=== PATIENT | female | born 1950 | race Caucasian/White ===

== ENCOUNTER 2019-04-09 09:43 | Outpatient (CLI) | payer MEDICARE, OTHER, SELFPAY ==
[2019-04-09 09:58] LABS: Basophils Absolute Auto 0.1 K/mm3 (0.0-0.1); Basophils Percent Auto 1.4 % (0.2-1.2); Eosinophils Absolute Auto 0.1 K/mm3 (0-0.3); Eosinophils Percent Auto 1.8 % (0-4.4); Hematocrit 38.8 % (37.0-47.0); Hemoglobin 13.4 g/dL (12.0-15.0); Immature Granulocyte Absolute 0.01 K/mm3 (0.00-0.031); Immature Granulocyte Percent A 0.2 % (0-0.5); Lymphocytes Absolute Auto 2.74 K/mm3 (0.9-3.2); Lymphocytes Percent Auto 55.5 % (18.3-44.2); Mean Corpuscular HGB Conc 34.5 g/dl (32-36); Mean Corpuscular Hemoglobin 29.7 pg (26-34); Mean Platelet Volume 9.2 fl (7.4-10.4); Monocytes Absolute Auto 0.3 K/mm3 (0.1-0.6); Monocytes Percent Auto 6.5 % (2.6-8.5); Neutrophils Absolute Auto 1.7 K/mm3 (1.3-6.7); Neutrophils Percent Auto 34.6 % (45.5-73.1); Platelet Count Result 211 k/mm3 (150-375); Red Blood Count 4.51 M/mm3 (4.2-5.4); Red Cell Distribution Width 12.8 % (11.5-14.5); White Blood Count 4.9 K/mm3 (4.5-10.0)
[2019-04-09 12:25] LABS: LDL Cholesterol Direct 55 mg/dL
[2019-04-09 12:28] LABS: Cholesterol 173 mg/dL (0-200)
[2019-04-09 12:29] LABS: Triglycerides 648 mg/dL (<150)
[2019-04-09 12:36] LABS: Vitamin D 25 Hydroxy < 12.8 ng/mL
[2019-04-09 12:40] LABS: Creatinine Urine 37.9 mg/dL
[2019-04-09 12:44] LABS: MALB Creatinine Ratio 30.3 mg/g (0-30); Microalbumin Urine Random 11.5 mg/L (0-16.7)
== END 2019-04-09 09:44 | disposition home or self-care (01) ==
LOC: ANHLAB 09:46
PROVIDERS: PCP Family Medicine; Visit Provider Family Medicine
DX: E11.65 Type 2 diabetes mellitus with hyperglycemia (principal); D51.9 Vitamin B12 deficiency anemia, unspecified; E78.5 Hyperlipidemia, unspecified; E55.9 Vitamin D deficiency, unspecified; Z79.4 Long term (current) use of insulin
CPT/HCPCS: 36415; 80061; 82043; 82306; 85025

== ENCOUNTER 2019-04-19 14:52 | Outpatient (CLI) | payer MEDICARE, OTHER, SELFPAY ==
[2019-04-19 15:21] LABS: Basophils Absolute Auto 0.1 K/mm3 (0.0-0.1); Basophils Percent Auto 1.7 % (0.2-1.2); Eosinophils Absolute Auto 0.1 K/mm3 (0-0.3); Eosinophils Percent Auto 1.3 % (0-4.4); Hematocrit 40.3 % (37.0-47.0); Hemoglobin 13.5 g/dL (12.0-15.0); Immature Granulocyte Absolute 0.01 K/mm3 (0.00-0.031); Immature Granulocyte Percent A 0.2 % (0-0.5); Lymphocytes Absolute Auto 2.44 K/mm3 (0.9-3.2); Lymphocytes Percent Auto 45.9 % (18.3-44.2); Mean Corpuscular HGB Conc 33.5 g/dl (32-36); Mean Corpuscular Hemoglobin 29.9 pg (26-34); Mean Corpuscular Volume 89.4 fl (80-100); Mean Platelet Volume 9.2 fl (7.4-10.4); Monocytes Absolute Auto 0.3 K/mm3 (0.1-0.6); Monocytes Percent Auto 6.2 % (2.6-8.5); Neutrophils Absolute Auto 2.4 K/mm3 (1.3-6.7); Neutrophils Percent Auto 44.7 % (45.5-73.1); Platelet Count Result 206 k/mm3 (150-375); Red Blood Count 4.51 M/mm3 (4.2-5.4); Red Cell Distribution Width 12.9 % (11.5-14.5); White Blood Count 5.3 K/mm3 (4.5-10.0)
[2019-04-19 16:56] LABS: Alanine Aminotransferase 24 U/L (4-35); Albumin Level 4.6 g/dL (3.5-5.1); Alkaline Phosphatase 141 U/L (38-126); Aspartate Amino Transferase 33 U/L (14-36); Bilirubin,Total 0.9 mg/dL (0.2-1.3); Blood Urea Nitrogen 12 mg/dL (7-17); Calcium 9.6 mg/dL (8.4-10.2); Carbon Dioxide 28 mmol/L (22-30); Chloride 89 mmol/L (98-107); Cholesterol 194 mg/dL (0-200); Estimated Glomerular Filt Rate > 60; Glucose 338 mg/dL (65-105); HDL Direct 64 mg/dL; Potassium 3.7 mmol/L (3.4-5.0); Sodium 133 mmol/L (137-145); Triglycerides 464 mg/dL (<150)
[2019-04-19 17:06] LABS: Creatinine Urine 18.6 mg/dL
[2019-04-19 17:07] LABS: LDL Cholesterol Direct 74 mg/dL
[2019-04-19 17:10] LABS: Microalbumin Urine Random 29.2 mg/L (0-16.7)
[2019-04-19 17:29] LABS: Vitamin D 25 Hydroxy 20.3 ng/mL
[2019-04-19 17:32] LABS: Hemoglobin A1C > 14.0 % (<5.7)
== END 2019-04-19 14:53 | disposition home or self-care (01) ==
LOC: ANHLAB 14:55
PROVIDERS: PCP Family Medicine; Visit Provider Family Medicine
DX: D51.9 Vitamin B12 deficiency anemia, unspecified (principal); K76.0 Fatty (change of) liver, not elsewhere classified; E11.65 Type 2 diabetes mellitus with hyperglycemia; E55.9 Vitamin D deficiency, unspecified
CPT/HCPCS: 36415; 80048; 80061; 80076; 82043; 82306; 82607; 83036; 85025

== ENCOUNTER 2019-04-23 08:40 | Outpatient (CLI) | payer MEDICARE, OTHER, SELFPAY ==
--- NOTE | ~2019-04-23 | MM_ITS ---
EXAMINATION: MM screening [facility] BI w lissette HISTORY: Screening mammogram TECHNIQUE: Craniocaudal and mediolateral oblique 3-D tomosynthesis images were obtained and synthetic 2-D images were generated. CAD analysis was submitted and interpreted. COMPARISON: 11/10/2013 bilateral digital screening BREAST PARENCHYMAL COMPOSITION: There are scattered areas of fibroglandular density. FINDINGS: Bilateral scattered benign calcifications. There is no evidence of suspicious mass, calcifi cation, or architectural distortion to suggest malignancy in either breast. There has been no suspici ous interval change. IMPRESSION: 1. No mammographic evidence of malignancy. 2. Recommend routine screening mammography in one year. BI-RADS Category 2: Benign finding(s). Reviewed, dictated and finalized at location A. ORATION DRILLER
--- NOTE | ~2019-04-23 | DEXA_ITS ---
Bone Density Report Name: Becca Lizarraga Age: 68 Sex: Female Ethnicity: White Date of : 1950 Indication: postmenopausal; height loss; hysterectomy; Referring Provider: MEY ALLAN Study: Bone densitometry was performed. Exam Date: April 23, 2019 Accession number: [id number] Bone Density: Region BMD T-score Z-score Classification AP Spine (L3, L4) 1.091 -0.1 2.1 Normal Femoral Neck (Left) 0.937 0.8 2.6 Normal Total Hip (Left) 1.143 1.6 3.1 Normal Total Hip Bilateral Avg 1.149 1.7 3.1 Normal Femoral Neck (Right) 0.985 1.2 3.0 Normal Total Hip (Right) 1.154 1.7 3.2 Normal World Health Organization criteria for BMD impression classify patients as: Normal (T-score at or above -1.0), Osteopenia (T-score between -1.0 and -2.5), or Osteoporosis (T-score at or below -2.5). 10-year Fracture Risk: FRAX not reported because: All T-scores for Spine Total, Hip Total, Femoral Neck at or above -1.0 Clinical Information Provided by Patient: Has the following medical conditions: Hysterectomy Patient maximum height was 63 Menopause Age: 57 No regular weight bearing exercise Drinks caffeinated beverages Onset of menses at age 12 Number of children 3 Impression: The patient has normal bone mass. Discussion: LOW RISK OF FRACTURE; BONE DENSITY IS WELL ABOVE THE MINIMUM DESIRABLE LEVEL AND ABOVE AVERAGE FOR AGE AND SEX AT ALL SKELETAL SITES TESTED. This person's bone density is above expected limits for age and sex. This is rarely clinically significant, but should be pursued if there are significant musculoskeletal complaints. The patient should follow a healthful lifestyle (good nutrition with adequate calcium and vitamin D, and appropriate weight-bearing exercise). Follow-Up: Consider repeating this study in 5 years or sooner if there is some new clinical indication. Reported by: ZAKI on 04/23/2019 9:28:00 AM. Reviewed, dictated and finalized at location AArianne RAINES
== END 2019-04-23 08:41 | disposition home or self-care (01) ==
PROVIDERS: PCP Family Medicine; Visit Provider Family Medicine
DX: Z12.31 Encounter for screening mammogram for malignant neoplasm of breast (principal); R93.7 Abnormal findings on diagnostic imaging of other parts of musculoskeletal system; Z78.0 Asymptomatic menopausal state
CPT/HCPCS: 77063; 77067; 77080

== ENCOUNTER 2020-01-26 07:59 | Outpatient (NON) | payer MEDICARE, OTHER, SELFPAY ==
[2020-01-27 16:06] LABS: SARS-CoV-2 RNA PCR Negative
== END 2020-01-26 08:00 ==
LOC: ANHCOVIDDT 08:01
PROVIDERS: PCP Family Medicine; Visit Provider Nurse Practitioner Family
DX: R11.10 Vomiting, unspecified (principal); Z20.828 Contact with and (suspected) exposure to other viral communicable diseases
CPT/HCPCS: 87635; C9803; U0003

== ENCOUNTER 2020-06-16 14:45 | Outpatient (CLI) | payer MEDICARE, OTHER, SELFPAY | END 2020-06-16 14:46 | disposition home or self-care (01) | LOC: ANHCOVIDVC 14:45 | PROVIDERS: PCP Family Medicine | DX: Z23 Encounter for immunization (principal) | CPT/HCPCS: 0001A; 91300 ==

== ENCOUNTER 2020-06-19 07:54 | Outpatient (CLI) | payer MEDICARE, OTHER, SELFPAY ==
[2020-06-19 08:38] LABS: Hemoglobin A1C 10.9 % (<5.7)
[2020-06-19 08:41] LABS: LDL Cholesterol Direct 153 mg/dL
[2020-06-19 08:45] LABS: Potassium 3.6 mmol/L (3.4-5.0)
[2020-06-19 08:48] LABS: Alanine Aminotransferase 38 U/L (4-35); Albumin Level 4.1 g/dL (3.5-5.1); Alkaline Phosphatase 108 U/L (38-126); Anion Gap 8 mmol/L (8-16); Aspartate Amino Transferase 58 U/L (14-36); Bilirubin,Total 0.6 mg/dL (0.2-1.3); Blood Urea Nitrogen 8 mg/dL (7-17); Calcium 9.7 mg/dL (8.4-10.2); Carbon Dioxide 32 mmol/L (22-30); Chloride 96 mmol/L (98-107); Cholesterol 305 mg/dL (0-200); Estimated Glomerular Filt Rate > 60; Glucose 290 mg/dL (65-105); Sodium 136 mmol/L (137-145)
[2020-06-19 08:49] LABS: Triglycerides 635 mg/dL (<150)
== END 2020-06-19 07:55 | disposition home or self-care (01) ==
PROVIDERS: PCP Family Medicine; Visit Provider Internal Medicine Cardiovascular Disease
DX: E11.65 Type 2 diabetes mellitus with hyperglycemia (principal); E78.5 Hyperlipidemia, unspecified
CPT/HCPCS: 36415; 80053; 80061; 83036

== ENCOUNTER 2020-07-01 18:48 | Emergency (ER) | payer MEDICARE, OTHER, SELFPAY ==
--- NOTE | ~2020-07-01 | XR_ITS ---
EXAMINATION: XR pelvis 1-2V EXAM DATE: 07/01/2020 19:42 INDICATION: Initial encounter following injury, with pain of the pelvis. Fall. TECHNIQUE: Pelvis frontal projection(s) obtained and reviewed. There is no prior study for compariso n. FINDINGS: There is mild to moderate symmetric bilateral hip primary osteoarthritis. There are no acut e pelvic fractures or dislocations identified. There is no subcutaneous gas. The soft tissue is unr emarkable. Some pelvic surgical clips. Gastric banding device. IMPRESSION: No acute osseous findings. Reviewed, dictated and finalized at location A. IMPRESSION: No acute osseous findings.
--- NOTE | ~2020-07-01 | XR_ITS ---
EXAMINATION: XR foot RT min 3V EXAM DATE: 07/01/2020 19:42 INDICATION: Initial encounter following injury, with pain of the right 2nd-4th toes. Fall. TECHNIQUE: Right foot dorsoplantar, lateral and oblique projections obtained and reviewed. There is no prior study for comparison. FINDINGS: Right metatarsal bones unremarkable. Mild hallux valgus. There are no acute fractures or dislocations identified. There is no subcutaneous gas. The soft tissue is unremarkable. There are no radiopaque foreign bodies. IMPRESSION: 1. XR foot RT min 3V exam without acute osseous findings. Reviewed, dictated and finalized at location A.
[2020-07-01 18:54] VITALS: BP 164/90; PULSE 103; RESP 16; TEMP 36.2; O2SAT 100
--- NOTE | 2020-07-01 19:56 | ED.GENADULT ---
HPI - General Adult General Chief complaint: Fall Stated complaint: Fall swollen left butt cheek, possible knot Time Seen by Provider: 07/01/20 19:18 History of Present Illness HPI narrative: Patient 69-year-old female presents the emergency department chief complaint of fall. The patient reports that she was in the kitchen this morning turned fell and struck the tip of her toe on her right foot and also landed on her left gluteal area patient denies loss of consciousness reports she does feels sore all over patient reports was a knot in her left butt cheek. Patient denies being on blood thinners patient reports he is able to ambulate but feels stiff and sore all over Related Data Home Medications Medication Instructions Recorded Confirmed omega-3 fatty acids 1,000 mg 3,000 mg PO BID cap 06/20/20 06/27/20 capsule Allergies Allergy/AdvReac Type Severity Reaction Status Date / Time amoxicillin Allergy Unknown GI problems Verified 07/01/20 18:53 metformin Allergy Unknown Nausea Verified 07/01/20 18:53 nitrofurantoin Allergy Unknown unknown Verified 07/01/20 18:53 Sulfa (Sulfonamide Allergy Unknown HIVES Verified 07/01/20 18:53 Antibiotics) sulfanilamide Allergy Unknown Unknown Verified 07/01/20 18:53 Review of Systems Review of Systems: Narrative: A 10 system review of systems was completed on the patient and is negative except for what is stated in the HPI. Nursing and ancillary documentation was reviewed. [facility] Past Medical History Medical History BMI 29.0-29.9,adult BMI 31.0-31.9,adult BMI 32.0-32.9,adult BMI greater than 30 Body aches Cough Diabetes type 2, uncontrolled Engages in playing video games as non-work related activity History of COVID-19 Mar 31, 2020 Jaw pain Mass of abdomen Right lateral epicondylitis Surgical History Surgical History H/O: hysterectomy S/P cataract surgery Left 2018 Family History Family History Grandparent Carcinoma of colon Father Malignant neoplasm of prostate Family history of diabetes mellitus in first degree relative Family history of coronary artery disease CHF (congestive heart failure) Diabetes mellitus Sibling Family history of diabetes mellitus in first degree relative Mother High triglycerides Sibling Multiple sclerosis Son Diabetes mellitus Daughter Obesity Other Cerebrovascular accident Social History Social History Second hand tobacco smoke exposure: No Alcohol intake: never 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 Gender identity (if verbalized by the patient): Female Exam Narrative: Exam Narrative: GENERAL: Well-appearing, well-nourished, and in no acute distress. HEAD: Normocephalic, atraumatic. EYES: PERRLA and EOMI. ENT: Nares clear, no rhinorrhea or epistaxis. Mucous membranes moist. NECK: Supple. CHEST: Clear to auscultation. No respiratory distress. HEART: Regular rate and rhythm. No murmur heard. Normal peripheral pulses. ABDOMEN: Soft, nontender, nondistended, normal active bowel sounds. EXTREMITIES: Normal range of motion. No edema. There is a small palpable hematoma in the left gluteal region. There is tenderness to palpation in the right foot SKIN: Warm, dry, no rash. NEURO: No focal deficits. Alert and oriented x3. PSYCH: Normal mood and affect. Course Course Emergency Course: Plain film x-rays of the pelvis and the foot showed no evidence of fracture Vital Signs Vital signs: Vital Signs Temperature 36.2 C L 07/01/20 18:54 Pulse Rate 103 H 07/01/20 18:54 Respiratory Rate 16 07/01/20 18:54 Blood Pressure 164/90 H 07/01/20 18:54 Pulse Oximetry 100 07/01/20 18:5
== END 2020-07-01 20:08 | disposition home or self-care (01) ==
PROVIDERS: Emergency Provider Emergency Medicine; PCP Family Medicine
DX: S30.0XXA Contusion of lower back and pelvis, initial encounter (principal); S90.31XA Contusion of right foot, initial encounter; W18.09XA Striking against other object with subsequent fall, initial encounter; E11.9 Type 2 diabetes mellitus without complications; Z86.16 Personal history of COVID-19
CPT/HCPCS: 72170; 73630; 99284

== ENCOUNTER 2020-07-07 15:57 | Outpatient (CLI) | payer MEDICARE, OTHER, SELFPAY | END 2020-07-07 15:58 | disposition home or self-care (01) | LOC: ANHCOVIDVC 15:57 | PROVIDERS: PCP Family Medicine | DX: Z23 Encounter for immunization (principal) | CPT/HCPCS: 0002A; 91300 ==

== ENCOUNTER 2020-09-20 11:54 | Outpatient (CLI) | payer MEDICARE, OTHER, SELFPAY ==
[2020-09-20 12:56] LABS: Basophils Absolute Auto 0.1 K/mm3 (0.0-0.1); Basophils Percent Auto 1.2 % (0.2-1.2); Eosinophils Absolute Auto 0.1 K/mm3 (0-0.3); Eosinophils Percent Auto 2.5 % (0-4.4); Hematocrit 37.7 % (37.0-47.0); Hemoglobin 12.1 g/dL (12.0-15.0); Immature Granulocyte Absolute 0.01 K/mm3 (0.00-0.031); Immature Granulocyte Percent A 0.2 % (0-0.5); Lymphocytes Absolute Auto 1.76 K/mm3 (0.9-3.2); Lymphocytes Percent Auto 34.4 % (18.3-44.2); Mean Corpuscular HGB Conc 32.1 g/dl (32-36); Mean Corpuscular Hemoglobin 30.4 pg (26-34); Mean Corpuscular Volume 94.7 fl (80-100); Mean Platelet Volume 8.8 fl (7.4-10.4); Monocytes Absolute Auto 0.5 K/mm3 (0.1-0.6); Neutrophils Absolute Auto 2.7 K/mm3 (1.3-6.7); Neutrophils Percent Auto 52.7 % (45.5-73.1); Platelet Count Result 266 k/mm3 (150-375); Red Blood Count 3.98 M/mm3 (4.2-5.4); Red Cell Distribution Width 15.4 % (11.5-14.5); White Blood Count 5.1 K/mm3 (4.5-10.0)
[2020-09-20 13:07] LABS: Anion Gap 11 mmol/L (8-16); Blood Urea Nitrogen 8 mg/dL (7-17); Calcium 9.4 mg/dL (8.4-10.2); Carbon Dioxide 24 mmol/L (22-30); Chloride 100 mmol/L (98-107); Estimated Glomerular Filt Rate > 60; Glucose 139 mg/dL (65-110); Potassium 4.2 mmol/L (3.4-5.0); Sodium 135 mmol/L (137-145)
== END 2020-09-20 11:55 | disposition home or self-care (01) ==
PROVIDERS: PCP Family Medicine; Visit Provider Physician Assistant Medical
DX: K56.50 Intestinal adhesions [bands], unspecified as to partial versus complete obstruction (principal)
CPT/HCPCS: 36415; 80048; 85025

== ENCOUNTER 2020-12-25 08:15 | Outpatient (CLI) | payer MEDICARE, OTHER, SELFPAY ==
--- NOTE | 2021-01-15 09:52 | WPDHOMESLEEP ---
Sleep Study - Home Unattended Date of Study: 12/25/20 Ordering Provider: Becca Lee MD Interpreting Provider: Becca Lee MD BMI 27.4 Home Sleep Study Type: Apnea Link Air Height: 157.5 m Weight: 68 kg Body Mass Index: 0.0 Neck Circumference (inches): 14.25 [place]: 4 Reason for Sleep Study Hypersomnia *11/16/2010 split night sleep study; AHI 24, CPAP 7 cm *06/17/2018 split night sleep study; AHI 20.4, loud snoring, 89%, optimal pressure 8 cm. Small Airfit F20 full face mask. Sleep History Becca Lizarraga is a 70 year old female with difficulty getting to sleep and staying sleep. She describes having poor sleep her entire life. She was previously diagnosed with obstructive sleep apnea in 2019, was started on CPAP but gave up after 2 months because she did not like the fullface mask due to the feeling of claustrophobia. She snores loudly, sleeps in a separate bedroom from her because she wakes up throughout the night. She describes herself as a night owl, goes to bed late, midnight or later, wakes at 10:00 a.m.. She never awakens feeling refreshed. She naps throughout the day, sometimes 30 minutes, or as long as 2 hours. She reads books on her phone at night in order to fall asleep. She has nocturia twice a night. She sleeps on her side with a pillow between her knees. She consumes tea throughout the day, up until bedtime. She was on Ambien for years, several months ago this was discontinued. She feels that her sleep worsened as she had been depending on this for years to help her get to sleep. She has anxiety, does not have problems with leg movements or irritable feelings in her legs before sleep. She rarely awakens from sleep feeling short of breath. She occasionally awakens at night with heartburn, belching or coughing. She frequently snores, and frequently has trouble sleeping with a cold. She does not gasp for breath at night or have breathing problems at night observed by others. She occasionally sweats excessively at night. She occasionally notices her heart pounding or beating irregularly at night and she occasionally falls asleep during the day. She rarely falls asleep involuntarily. She does not fall asleep while driving. She rarely has loss of muscle tone with strong emotion. She does not have daytime difficulties due to excessive sleepiness. She does not feel paralyzed on waking or falling asleep. She rarely has vivid dreamlike scenes upon awakening or falling asleep. She does not feel afraid to go to sleep. She rarely has nightmares. She occasionally remembers her dreams. She occasionally has racing thoughts. She rarely feels sad or depressed. She occasionally has anxiety. She rarely has muscular tension. She constantly has crawling and aching feelings in her legs. She constantly is bothered by pain during the day and frequently is awakened by pain during the night. She frequently wakes up feeling stiff the morning. She constantly wakes up with sore or achy muscles. She frequently wakes up with pain in the neck and spine. She has fatigue. Normal bedtime is 10:00 p.m. taking a few hours fall asleep typically waking 2 or 3 times at night. When she wakes at night she will read, check her e-mail. She may stay awake for an hour or 2. She typically wakes up 2-3 times during the night, And often wakes to urinate. She does not feel refreshed after short nap. She is drowsy in the morning for 2 hours or longer. She feels better in the evening compared to other times of day.. She awakens in the morning around 10:00 a.m. but this may vary depending on how much sleep she was able to get. She wakes up at 7:30 a.m. on Sundays. She estimates getting only 3-4 hours of sleep at night. Habits: Never smoked tobacco. Caffeine, half cup of tea daily. No alcohol or recreational drugs. [facility] Past Medical History Medical History Anterior neck p
== END 2020-12-26 10:32 | disposition home or self-care (01) ==
LOC: ANHCSM 08:16
PROVIDERS: PCP Family Medicine; Visit Provider Internal Medicine Critical Care Medicine
DX: G47.10 Hypersomnia, unspecified (principal); R06.83 Snoring; Z72.821 Inadequate sleep hygiene
CPT/HCPCS: 95806

== ENCOUNTER 2021-01-01 13:13 | Outpatient (CLI) | payer MEDICARE, OTHER, SELFPAY ==
[2021-01-01 13:38] LABS: Basophils Absolute Auto 0.1 K/mm3 (0.0-0.1); Basophils Percent Auto 1.4 % (0.2-1.2); Eosinophils Absolute Auto 0.1 K/mm3 (0-0.3); Eosinophils Percent Auto 1.6 % (0-4.4); Hematocrit 45.9 % (37.0-47.0); Hemoglobin 15.3 g/dL (12.0-15.0); Immature Granulocyte Absolute 0.02 K/mm3 (0.00-0.031); Immature Granulocyte Percent A 0.3 % (0-0.5); Lymphocytes Absolute Auto 2.42 K/mm3 (0.9-3.2); Lymphocytes Percent Auto 37.9 % (18.3-44.2); Mean Corpuscular HGB Conc 33.3 g/dl (32-36); Mean Corpuscular Hemoglobin 29.4 pg (26-34); Mean Corpuscular Volume 88.3 fl (80-100); Mean Platelet Volume 8.6 fl (7.4-10.4); Monocytes Absolute Auto 0.4 K/mm3 (0.1-0.6); Monocytes Percent Auto 6.3 % (2.6-8.5); Neutrophils Absolute Auto 3.4 K/mm3 (1.3-6.7); Neutrophils Percent Auto 52.5 % (45.5-73.1); Platelet Count Result 263 k/mm3 (150-375); Red Cell Distribution Width 13.1 % (11.5-14.5); White Blood Count 6.4 K/mm3 (4.5-10.0)
[2021-01-01 16:24] LABS: Anion Gap 12 mmol/L (8-16); Blood Urea Nitrogen 12 mg/dL (7-17); Carbon Dioxide 28 mmol/L (22-30); Chloride 99 mmol/L (98-107); Estimated Glomerular Filt Rate > 60; Glucose 174 mg/dL (65-110); Potassium 3.8 mmol/L (3.4-5.0); Sodium 139 mmol/L (137-145)
== END 2021-01-01 13:14 | disposition home or self-care (01) ==
LOC: ANHLAB 13:16
PROVIDERS: PCP Family Medicine; Visit Provider Family Medicine
DX: M54.2 Cervicalgia (principal); I10 Essential (primary) hypertension
CPT/HCPCS: 36415; 80048; 84443; 85025

== ENCOUNTER 2021-02-06 08:28 | Outpatient (CLI) | payer MEDICARE, OTHER, SELFPAY ==
--- NOTE | ~2021-02-06 | MM_ITS ---
EXAMINATION: MM screening [facility] BI w lissette HISTORY: Screening mammogram TECHNIQUE: Craniocaudal and mediolateral oblique 3-D tomosynthesis images were obtained and synthetic 2-D images were generated. CAD analysis was submitted and interpreted. COMPARISON: 04/23/2019, 11/10/2013, 10/29/2012 BREAST PARENCHYMAL COMPOSITION: There are scattered areas of fibroglandular density. FINDINGS: There is no evidence of suspicious mass, calcification, or architectural distortion to sugg est malignancy in either breast. There has been no suspicious interval change. IMPRESSION: 1. No mammographic evidence of malignancy. 2. Recommend routine screening mammography in one year. BI-RADS Category 1: Negative Reviewed, dictated and finalized at location A. K KILN WORKER
== END 2021-02-06 08:29 | disposition home or self-care (01) ==
LOC: ANHIMG 08:29
PROVIDERS: PCP Family Medicine; Visit Provider Family Medicine
DX: Z12.31 Encounter for screening mammogram for malignant neoplasm of breast (principal)
CPT/HCPCS: 77063; 77067

== ENCOUNTER 2021-04-27 13:13 | Outpatient (CLI) | payer MEDICARE, OTHER, SELFPAY ==
--- NOTE | ~2021-04-27 | XR_ITS ---
EXAMINATION: XR mandible min 4V EXAM DATE: 04/27/2021 13:42 INDICATION: R68.84 - Jaw pain, chronic. TECHNIQUE: Mandible frontal, steep frontal, bilateral lateral angulated projections. There is no pr ior study for comparison. FINDINGS: There are no acute mandible fractures or dislocations identified. There is no subcutaneous gas. The soft tissue is unremarkable. There are no radiopaque foreign bodies. Mandibular condyles appear to be in the respective temporomandibular joints, without erosive change. IMPRESSION: 1. Unremarkable XR mandible min 4V exam. Reviewed, dictated and finalized at location A. COMMUNICATIONS
[2021-04-27 13:28] LABS: Basophils Absolute Auto 0.1 K/mm3 (0.0-0.1); Eosinophils Absolute Auto 0.1 K/mm3 (0-0.3); Eosinophils Percent Auto 1.8 % (0-4.4); Hematocrit 42.9 % (37.0-47.0); Hemoglobin 14.4 g/dL (12.0-15.0); Immature Granulocyte Absolute 0.02 K/mm3 (0.00-0.031); Immature Granulocyte Percent A 0.3 % (0-0.5); Lymphocytes Absolute Auto 2.66 K/mm3 (0.9-3.2); Lymphocytes Percent Auto 39.6 % (18.3-44.2); Mean Corpuscular HGB Conc 33.6 g/dl (32-36); Mean Corpuscular Hemoglobin 30.4 pg (26-34); Mean Corpuscular Volume 90.7 fl (80-100); Mean Platelet Volume 8.8 fl (7.4-10.4); Monocytes Absolute Auto 0.6 K/mm3 (0.1-0.6); Monocytes Percent Auto 9.2 % (2.6-8.5); Neutrophils Absolute Auto 3.2 K/mm3 (1.3-6.7); Neutrophils Percent Auto 48.1 % (45.5-73.1); Platelet Count Result 257 k/mm3 (150-375); Red Blood Count 4.73 M/mm3 (4.2-5.4); Red Cell Distribution Width 13.2 % (11.5-14.5); White Blood Count 6.7 K/mm3 (4.5-10.0)
== END 2021-04-27 13:14 | disposition home or self-care (01) ==
LOC: ANHLAB 13:15
PROVIDERS: PCP Family Medicine; Visit Provider Physician Assistant Medical
DX: R59.1 Generalized enlarged lymph nodes (principal); R68.84 Jaw pain
CPT/HCPCS: 36415; 70110; 85025

== ENCOUNTER 2021-05-03 13:26 | Outpatient (CLI) | payer MEDICARE, OTHER, SELFPAY ==
--- NOTE | ~2021-05-03 | US_ITS ---
US soft tissue head and neck 05/03/2021 13:57 Indication: Lymph node swelling for one month causing jaw pain Procedure: High-resolution ultrasound of the right neck in the area of palpable concern. Comparison: No prior studies for comparison. Findings: The submandibular gland is identified in the area of palpable concern without discrete mass or surrounding abnormality. No lymphadenopathy is identified. Impression: 1: Normal-appearing right submandibular gland in the area of palpable concern. If there is concern fo r sialoadenitis, further evaluation with CT neck with contrast is recommended. Reviewed, dictated and finalized at location B. Impression: 1: Normal-appearing right submandibular gland in the area of palpable concern. If there is concern for sialoadenitis, further evaluation with CT neck with con trast is recommended.
== END 2021-05-03 13:27 | disposition home or self-care (01) ==
PROVIDERS: PCP Family Medicine; Visit Provider Physician Assistant Medical
DX: R59.1 Generalized enlarged lymph nodes (principal); R68.84 Jaw pain
CPT/HCPCS: 76536

== ENCOUNTER 2021-06-07 08:54 | Outpatient (CLI) | payer MEDICARE, OTHER, SELFPAY ==
--- NOTE | ~2021-06-07 | CT_ITS ---
EXAMINATION: CT soft tissue neck w con DATE: 06/07/2021 09:24 INDICATION: Hypertrophy of salivary gland. TECHNIQUE: Computed tomography (CT) of the neck was performed with 75 mL Omnipaque-350 intravenous co ntrast. Automated exposure control and iterative reconstruction technique were employed. The dose-ilan gth product was 452.45 mGy-cm. COMPARISON: Ultrasound 05/03/2021 FINDINGS: There are likely changes of ocular lens replacement surgeries. The major salivary glands ar e normal and symmetric. No sialolith. There is mild plaque in proximal right internal carotid artery with 0% stenosis relative to normal distal artery lumen diameter. There is moderate cervical spondylo sis. IMPRESSION: 1. Normal major salivary glands. Reviewed, dictated and finalized at location B.
[2021-06-07 09:16] LABS: Estimated Glomerular Filt Rate > 60
== END 2021-06-07 08:55 | disposition home or self-care (01) ==
PROVIDERS: PCP Family Medicine; Visit Provider Physician Assistant Medical
DX: K11.1 Hypertrophy of salivary gland (principal)
CPT/HCPCS: 70491; Q9967

== ENCOUNTER 2021-07-05 08:59 | Outpatient (CLI) | payer MEDICARE, OTHER, SELFPAY ==
[2021-07-05 09:41] LABS: Hematocrit 41.2 % (37.0-47.0); Hemoglobin 14.3 g/dL (12.0-15.0); Mean Corpuscular HGB Conc 34.7 g/dl (32-36); Mean Corpuscular Hemoglobin 30.6 pg (26-34); Platelet Count Result 261 k/mm3 (150-375); Red Blood Count 4.68 M/mm3 (4.2-5.4); Red Cell Distribution Width 13.6 % (11.5-14.5); White Blood Count 6.5 K/mm3 (4.5-10.0)
[2021-07-05 09:55] LABS: Hemoglobin A1C 7.1 % (<5.7)
[2021-07-05 10:18] LABS: LDL Cholesterol Direct 144 mg/dL
[2021-07-05 10:32] LABS: Alanine Aminotransferase 30 U/L (6-35); Albumin Level 4.5 g/dL (3.5-5.1); Alkaline Phosphatase 101 U/L (38-126); Anion Gap 9 mmol/L (8-16); Aspartate Amino Transferase 46 U/L (14-36); Bilirubin,Total 0.9 mg/dL (0.2-1.3); Blood Urea Nitrogen 7 mg/dL (7-17); Calcium 9.3 mg/dL (8.4-10.2); Carbon Dioxide 28 mmol/L (22-30); Chloride 101 mmol/L (98-107); Cholesterol 300 mg/dL (0-200); Estimated Glomerular Filt Rate > 60; Glucose 169 mg/dL (65-110); HDL Direct 42 mg/dL; Magnesium 1.9 mg/dL (1.6-2.3); Potassium 4.1 mmol/L (3.4-5.0); Sodium 138 mmol/L (137-145)
[2021-07-05 10:40] LABS: Creatinine Urine 126.5 mg/dL
[2021-07-05 10:45] LABS: MALB Creatinine Ratio 34.3 mg/g (0-30); Microalbumin Urine Random 43.4 mg/L (0-16.7)
[2021-07-05 11:53] LABS: Triglycerides 557 mg/dL (<150); Vitamin D 25 Hydroxy < 12.8 ng/mL
== END 2021-07-05 09:00 | disposition home or self-care (01) ==
LOC: ANHLAB 09:01
PROVIDERS: PCP Family Medicine; Visit Provider Family Medicine
DX: E78.2 Mixed hyperlipidemia (principal); Z13.220 Encounter for screening for lipoid disorders; I10 Essential (primary) hypertension; Z51.81 Encounter for therapeutic drug level monitoring; Z79.4 Long term (current) use of insulin; E11.9 Type 2 diabetes mellitus without complications; E83.42 Hypomagnesemia
CPT/HCPCS: 36415; 80048; 80061; 80076; 82043; 82306; 83036; 83735; 84443; 85027

== ENCOUNTER 2021-11-22 08:01 | Outpatient (CLI) | payer MEDICARE, OTHER, SELFPAY ==
--- NOTE | ~2021-11-22 | US_ITS ---
EXAMINATION: US art doppler w press LE BI DATE: 11/22/2021 10:45 INDICATION: No pulses in the bilateral feet. TECHNIQUE: Segmental pressures and plethysmographic and Doppler waveforms of the brachial and lower e xtremity arteries were obtained. COMPARISON: None. FINDINGS: Right and left brachial artery pressures of 147 mm Hg and 146 mm Hg, respectively, are concordant (no rmal difference <= 30 mmHg). The right and left high-thigh pressure indices are 1.31 and 1.09, respec tively (normal > 1.2). The right ankle-brachial index (DENNIS) is 1.24 (normal >= 0.9-1). The right great toe-brachial index (T BI) is 0.76 (normal >= 0.6-0.8). The right lower extremity segmental pressure gradients are normal (n ormal gradients <= 20-30 mmHg between adjacent levels on the same leg or the same levels on the two l egs). Arterial waveforms are triphasic at the right superficial femoral artery and biphasic in the re maining arteries throughout the right lower limb, all with brisk systolic upstrokes. The left DENNIS is 0.85. The left TBI is 0.55. The left lower extremity segmental pressure gradients are increased between the arteries at the left ankle and the left [id number] popliteal artery as wel l as the contralateral right posterior tibial artery. Arterial waveforms are biphasic with brisk syst olic upstrokes throughout the arteries of the left lower limb. IMPRESSION: 1. 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 2. No significant arterial occlusive disease to the right lower limb with normal right DENNIS and TBI. Reviewed, dictated and finalized at location A. IMPRESSION: 1. 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 2. No significant arterial occlusive disease to the right lower limb with lissa l right DENNIS and TBI.
== END 2021-11-22 08:02 | disposition home or self-care (01) ==
PROVIDERS: PCP Family Medicine; Visit Provider Orthopaedic Surgery
DX: I73.9 Peripheral vascular disease, unspecified (principal); R09.89 Other specified symptoms and signs involving the circulatory and respiratory systems
CPT/HCPCS: 93923

== ENCOUNTER 2021-12-20 11:16 | Outpatient (CLI) | payer MEDICARE, OTHER, SELFPAY ==
[2021-12-20 12:23] LABS: Basophils Absolute Auto 0.1 K/mm3 (0.0-0.1); Basophils Percent Auto 1.3 % (0.2-1.2); Eosinophils Absolute Auto 0.1 K/mm3 (0-0.3); Eosinophils Percent Auto 2.5 % (0-4.4); Hematocrit 45.5 % (37.0-47.0); Hemoglobin 15.2 g/dL (12.0-15.0); Immature Granulocyte Absolute 0.01 K/mm3 (0.00-0.031); Immature Granulocyte Percent A 0.2 % (0-0.5); Lymphocytes Absolute Auto 2.16 K/mm3 (0.9-3.2); Lymphocytes Percent Auto 41.1 % (18.3-44.2); Mean Corpuscular HGB Conc 33.4 g/dl (32-36); Mean Corpuscular Hemoglobin 29.8 pg (26-34); Mean Corpuscular Volume 89.2 fl (80-100); Mean Platelet Volume 9.2 fl (7.4-10.4); Monocytes Absolute Auto 0.4 K/mm3 (0.1-0.6); Neutrophils Absolute Auto 2.5 K/mm3 (1.3-6.7); Neutrophils Percent Auto 46.9 % (45.5-73.1); Platelet Count Result 236 k/mm3 (150-375); Red Cell Distribution Width 13.2 % (11.5-14.5); White Blood Count 5.3 K/mm3 (4.5-10.0)
[2021-12-20 12:37] LABS: Alanine Aminotransferase 21 U/L (6-35); Albumin Level 4.7 g/dL (3.5-5.1); Alkaline Phosphatase 90 U/L (38-126); Anion Gap 13 mmol/L (8-16); Aspartate Amino Transferase 31 U/L (14-36); Bilirubin,Total 0.8 mg/dL (0.2-1.3); Blood Urea Nitrogen 6 mg/dL (7-17); Calcium 9.2 mg/dL (8.4-10.2); Carbon Dioxide 28 mmol/L (22-30); Chloride 97 mmol/L (98-107); Cholesterol 275 mg/dL (0-200); Estimated Glomerular Filt Rate > 60; Glucose 139 mg/dL (65-110); HDL Direct 37 mg/dL; Potassium 3.3 mmol/L (3.4-5.0); Sodium 138 mmol/L (137-145); Triglycerides 326 mg/dL (<150)
[2021-12-20 12:45] LABS: Creatinine Urine 143.7 mg/dL
[2021-12-20 12:49] LABS: LDL Cholesterol Direct 174 mg/dL
[2021-12-20 12:52] LABS: MALB Creatinine Ratio 14.3 mg/g (0-30); Microalbumin Urine Random 20.6 mg/L (0-16.7)
[2021-12-20 13:21] LABS: Hemoglobin A1C 7.2 % (<5.7)
[2021-12-20 14:01] LABS: Vitamin D 25 Hydroxy < 12.8 ng/mL
== END 2021-12-20 11:17 | disposition home or self-care (01) ==
PROVIDERS: PCP Family Medicine; Visit Provider Physician Assistant Medical
DX: E11.9 Type 2 diabetes mellitus without complications (principal); Z79.4 Long term (current) use of insulin; E78.5 Hyperlipidemia, unspecified; I10 Essential (primary) hypertension; E55.9 Vitamin D deficiency, unspecified
CPT/HCPCS: 36415; 80053; 80061; 82043; 82306; 83036; 84443; 85025